=== PATIENT | female | born 1990 | race Caucasian/White ===

== ENCOUNTER 2017-05-06 07:12 | Inpatient (IN) | payer MEDICAID, OTHER ==
[2017-05-06] MEDS ORDERED: Sodium Chloride 0.9% 10 ML Syringe FLUSH PRN (07:27)
[2017-05-06] MEDS ORDERED: Ondansetron 4 MG/2 ML SDV IVPUSH PRN ×2 (07:27→14:08)
[2017-05-06] MEDS ORDERED: Nalbuphine 20 MG/1 ML Amp IVPUSH PRN (07:27)
[2017-05-06] MEDS ORDERED: Oxytocin/Lactated Ringers 10 UNIT/1,000 ML BAG IV SCH ×2 (07:30→08:00)
--- NOTE | 2017-05-06 07:33 | PCM.LDHP ---
L&D History of Present Illness - General Date of Service: 05/06/17 Admit Problem/Dx: Patient Status Order with Admit Dx/Problem 05/06/17 07:30 Patient Status [ADT] Routine Admission Diagnosis/Problem Admission Diagnosis/Problem Normal Source of Information: Patient History Limitations: Reports: No Limitations - History of Present Illness Introduction:: Patient is a 26 y/o at 39 1/7 wks who presents for elective IOL. Doing well today. No major concerns or complaints. Notes good FM. No contractions. 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 (Approximate): Musculoskeletal History: Reports: Back Pain, Chronic - Past Surgical History HEENT Surgical History: Reports: Tonsillectomy Musculoskeletal Surgical History: Reports: Other (See Below) (Wrist surgery) Social & Family History - Family History Oncologic: Reports: Skin - Tobacco Use Smoking Status *Q: Current Every Day Smoker Years of Tobacco use: 9 Packs/Tins Daily: 0.2 - Caffeine Use Caffeine Use: Reports: Soda - Recreational Drug Use Recreational Drug Use: No - Living Situation & Occupation Living situation: Reports: Occupation: Employed H&P Review of Systems - Review of Systems: Review Of Systems: See Below General: Reports: No Symptoms Pulmonary: Reports: No Symptoms Cardiovascular: Reports: No Symptoms Gastrointestinal: Reports: No Symptoms Genitourinary: Reports: No Symptoms Musculoskeletal: Reports: No Symptoms L&D Exam - Exam Exam: See Below - Vital Signs Weight: 91.036 kg - OB Specific Contraction Intensity: Irritability Movement: Active Heart Tones: Present Heart Tones per Min: 145 Heart Rate (FHR) Variability: Moderate (6-25 bmp) Presentation: Vertex - Cobos Score Cobos Score Cervix Position: Posterior Cobos Score Consistency: Soft Cobos Score Effacement: 31-50% Cobos Score Dilation: 1-2 cm Cobos Score Infant's Station: -3 Cobos Score Total: 4 - Exam General: Alert, Oriented, Cooperative Lungs: Clear to Auscultation, Normal Respiratory Effort Cardiovascular: Regular Rate, Regular Rhythm GI/Abdominal Exam: Soft, Non-Tender Genitourinary: Normal external exam Extremities: Normal Inspection Skin: Warm, Dry, Intact - Patient Data Result Diagrams: 05/06/17 07:50 - Problem List (1) 39 weeks gestation of SNOMED Code(s): 90784153 ICD Code: Z3A.39 - 39 WEEKS GESTATION OF Status: Acute Current Visit: Yes (2) GBS (group B Streptococcus carrier), +RV culture, currently SNOMED Code(s): 01277154 ICD Code: O99.820 - STREPTOCOCCUS B CARRIER STATE COMPLICATING Status: Acute Current Visit: Yes Problem List Initiated/Reviewed/Updated: Yes Orders Last 24hrs: Active Orders 24 hr Category Date Time Status Patient Status [ADT] Routine ADT 05/06/17 07:30 Active Communication Order [RC] ASDIRECTED Care 05/06/17 07:28 Active Communication Order [RC] ASDIRECTED Care 05/06/17 07:28 Active Communication Order [RC] ASDIRECTED Care 05/06/17 07:28 Active Heart Tones [RC] ASDIRECTED Care 05/06/17 07:30 Active Notify Provider [RC] ASDIRECTED Care 05/06/17 07:28 Active Notify Provider [RC] PFP Care 05/06/17 07:28 Active Notify Provider [RC] PRN Care 05/06/17 07:28 Active Peripheral IV Care [RC] . DIRECTED Care 05/06/17 07:30 Active Up ad Dasha [RC] ASDIRECTED Care 05/06/17 07:28 Active Vaginal Exam [RC] ASDIRECTED Care 05/06/17 07:28 Active Vital Signs [RC] ASDIRECTED Care 05/06/17 07:28 Active Vital Signs [RC] PER UNIT ROUTINE Care 05/06/17 07:28 Active Regular Diet [DIET] Diet 05/06/17 Breakfast Active Regular Diet [DIET] Diet 05/06/17 Breakfast Active CBC WITH AUTO DIFF [HEME] Routine Lab 05/06/17 07:27 Ordered TYPE AND SCREEN [BBK] Routine Lab 05/06/17 07:27 Ordered Ampicillin 1 gm Med 05/06/17 07:30 Ordered Sodium Chloride 0.9% [Normal Saline] 100 ml IV Q4H Ampicillin 2 gm Med 05/06/17 07:27 Ordered Sodium Chloride 0.9% [Normal Saline] 100 ml IV ONETIME Lactated Ringers [Ringers, Lactated] 1,000 ml Med 05/06/17 07:30 Ordered IV ASDIRECTED Nalbuphine [Nubain] Med 05/06/17 07:27 Ordered 10 mg IVPUSH Q2H PRN Ondansetron [Zofran] Med 05/06/17 07:27 Ordered 4 mg IVPUSH Q4H PRN Oxytocin/Lactated Ringers [Pitocin in LR 10 Units/1,000 Med 05/06/17 07:30 Ordered ML] 10 unit in 1,000 ml IV .CONTINUOUS Sodium Chloride 0.9% [Saline Flush] Med 05/06/17 07:27 Ordered 10 ml FLUSH ASDIRECTED PRN Electronic Heart Tones Ext w TOCO [WOMSER] Oth 05/06/17 07:28 Ordered Routine Electronic Heart Tones Internal [WOMSER] Per Unit Oth 05/06/17 07:28 Ordered Routine Peripheral IV Insertion Adult [OM.PC] Routine Oth 05/06/17 07:28 Ordered Resuscitation Status Routine Resus Stat 05/06/17 07:27 Ordered Medication Orders Ampicillin Sodium 2 gm/ Sodium (Chloride) 100 mls @ 200 mls/hr IV ONETIME ONE Stop: 05/06/17 07:56 Ampicillin Sodium 1 gm/ Sodium (Chloride) 100 mls @ 200 mls/hr IV Q4H CRUZITO Lactated Ringer's (Ringers, Lactated) 1,000 mls @ 40 mls/hr IV ASDIRECTED CRUZITO Oxytocin/Lactated Ringer's (Pitocin In Lr 10 Units/1,000 Ml) 10 unit in 1,000 mls @ 500 mls/hr IV .CONTINUOUS CRUZITO Nalbuphine HCl (Nubain) 10 mg IVPUSH Q2H PRN PRN Reason: Pain (moderate 4-6) Ondansetron HCl (Zofran) 4 mg IVPUSH Q4H PRN PRN Reason: Nausea/Vomiting Sodium Chloride (Saline Flush) 10 ml FLUSH ASDIRECTED PRN PRN Reason: Keep Vein Open Assessment/Plan Comment:: 26 y/o at 39 1/7 wks who presents for elective IOL * CBC and T&S * GBS positive, ampicillin to be started * Pain management per patient preference * Anticipate
[2017-05-06] MEDS ORDERED: Ampicillin 2 GM in Sodium Chloride 0.9% 100 ML IV ONE (08:00)
[2017-05-06] MEDS: Lactated Ringers 1,000 ML IV SCH ×2 (08:37→10:22)
[2017-05-06] MEDS: Ampicillin 1 GM in Sodium Chloride 0.9% 100 ML IV SCH (12:17)
--- NOTE | 2017-05-06 12:20 | PCM.PNLD ---
Labor Progress Note - VS & Meds Vital Signs: Last Vital Signs Temp 36.6 C 05/06/17 07:30 Pulse 89 05/06/17 07:30 Resp 18 05/06/17 07:30 BP 125/70 05/06/17 07:30 Pulse Ox 99 05/06/17 07:30 Active Medications: Current Medications Ampicillin Sodium 1 gm/ Sodium (Chloride) 100 mls @ 200 mls/hr IV Q4H CRUZITO Last Admin: 05/06/17 12:17 Dose: 200 mls/hr Lactated Ringer's (Ringers, Lactated) 1,000 mls @ 40 mls/hr IV ASDIRECTED CRUZITO Last Admin: 05/06/17 10:22 Dose: 40 mls/hr Oxytocin/Lactated Ringer's (Pitocin In Lr 10 Units/1,000 Ml) 10 unit in 1,000 mls @ 500 mls/hr IV .CONTINUOUS CRUZITO PRN Reason: Protocol Oxytocin/Lactated Ringer's (Pitocin In Lr 10 Units/1,000 Ml) 10 unit in 1,000 mls @ 12 mls/hr IV TITRATE CRUZITO; 2 MUNITS/MIN PRN Reason: Protocol Last Titration: 05/06/17 12:06 Dose: 12 munits/min, 72 mls/hr Nalbuphine HCl (Nubain) 10 mg IVPUSH Q2H PRN PRN Reason: Pain (moderate 4-6) Ondansetron HCl (Zofran) 4 mg IVPUSH Q4H PRN PRN Reason: Nausea/Vomiting Sodium Chloride (Saline Flush) 10 ml FLUSH ASDIRECTED PRN PRN Reason: Keep Vein Open Discontinued Medications Ampicillin Sodium 2 gm/ Sodium (Chloride) 100 mls @ 200 mls/hr IV ONETIME ONE Stop: 05/06/17 08:29 Last Admin: 05/06/17 08:37 Dose: 200 mls/hr - Uterine Contractions Uterine Monitoring Mode: External [place] Contraction Intensity: Mild to Moderate Uterine Resting Tone: Soft - Monitoring Monitor Mode: External Ultrasound Heart Rate (FHR) Baseline: 130 Heart Rate (FHR) Variability: Moderate (6-25 bmp) Accelerations: Present, 15x15 Decelerations: None Strip Review: Category I - Vaginal Exam Dilation (cm): 2 Effacement (Percent): 75 Station: -2 Cervical Position: Posterior - Labor Progress (Free Text) Labor Progress: Patient doing well. Pitocin at 12. Feeling some pressure. AROM performed with release of meconium stained fluid. Just receiving 2nd dose of antibiotics for GBS prophylaxis. Continue present management
[2017-05-06] MEDS ORDERED: FLU Vacc QS 2017-18 (6mos UP)/PF 60 MCG/0.5 ML Syringe IM ONE (14:00)
[2017-05-06] MEDS ORDERED: diphenhydrAMINE 50 MG/ML SDV IVPUSH PRN (14:08)
[2017-05-06] MEDS ORDERED: fentaNYL 100 MCG/2 ML SDV EPIDUR PRN (14:08)
[2017-05-06] MEDS ORDERED: ePHEDrine 50 MG/ML SDV IVPUSH PRN (14:08)
[2017-05-06] MEDS ORDERED: Bupivacaine/fentaNYL/NS 100 ML Bag EPIDUR SCH (14:15)
--- NOTE | 2017-05-06 14:23 | PCM.PREANE ---
Preanesthetic Assessment - Procedure Proposed Procedure: JAYSON - Anesthesia/Transfusion/Family Hx Anesthesia History: Prior Anesthesia Without Reaction Family History of Anesthesia Reaction: No Transfusion History: No Prior Transfusion(s) - Review of Systems General: No Symptoms Pulmonary: No Symptoms Cardiovascular: No Symptoms Gastrointestinal: No Symptoms Neurological: No Symptoms Other: Reports: None - Physical Assessment NPO Status Date: 05/06/17 NPO Status Time: 10:00 Pulse: 89 O2 Sat by Pulse Oximetry: 99 Respiratory Rate: 18 Blood Pressure: 125/70 Vital Signs: Last Vital Signs Temp 36.6 C 05/06/17 07:30 Pulse 89 05/06/17 07:30 Resp 18 05/06/17 07:30 BP 125/70 05/06/17 07:30 Pulse Ox 99 05/06/17 07:30 Height: 1.57 m Weight: 93.848 kg ASA Class: 2 Mental Status: Alert & Oriented x3 Dentition: Reports: Normal Dentition Thyro-Mental Finger Breadths: 3 Mouth Opening Finger Breadths: 3 ROM/Head Extension: Full Lungs: Clear to Auscultation, Normal Respiratory Effort Cardiovascular: Regular Rate, Regular Rhythm - Lab Values: Laboratory Last Values WBC 12.49 K/mm3 (3.98-10.04) H 05/06/17 07:50 RBC 3.77 M/mm3 (3.98-5.22) L 05/06/17 07:50 Hgb 12.3 gm/L (11.2-15.7) 05/06/17 07:50 Hct 36.2 % (34.1-44.9) 05/06/17 07:50 MCV 96.0 fl (79.4-94.8) H 05/06/17 07:50 MCH 32.6 pg (25.6-32.2) H 05/06/17 07:50 MCHC 34.0 g/dl (32.2-35.5) 05/06/17 07:50 RDW Std Deviation 45.4 fL (36.4-46.3) 05/06/17 07:50 Plt Count 167 K/mm3 (182-369) L 05/06/17 07:50 MPV 11.4 fl (9.4-12.3) 05/06/17 07:50 Neut % (Auto) 73.2 % (34.0-71.1) H 05/06/17 07:50 Lymph % (Auto) 19.9 % (19.3-51.7) 05/06/17 07:50 [place] % (Auto) 5.8 % (4.7-12.5) 05/06/17 07:50 Eos % (Auto) 0.3 (0.7-5.8) L 05/06/17 07:50 Baso % (Auto) 0.2 % (0.1-1.2) 05/06/17 07:50 Neut # (Auto) 9.14 K/mm3 (1.56-6.13) H 05/06/17 07:50 Lymph # (Auto) 2.49 K/mm3 (1.18-3.74) 05/06/17 07:50 [place] # (Auto) 0.73 K/mm3 (0.24-0.36) H 05/06/17 07:50 Eos # (Auto) 0.04 K/mm3 (0.04-0.36) 05/06/17 07:50 Baso # (Auto) 0.02 K/mm3 (0.01-0.08) 05/06/17 07:50 MRSA (PCR) Negative 05/06/17 09:29 Blood Type A POSITIVE 05/06/17 07:50 Gel Antibody Screen Negative 05/06/17 07:50 - Allergies Allergies/Adverse Reactions: Allergies Allergy/AdvReac Type Severity Reaction Status Date / Time aripiprazole [From Abilify] Allergy Swollen Verified 03/14/17 16:41 Tongue - Blood Blood Available: No Product(s) Available: None - Acknowledgements Anesthesia Type Planned: Epidural Pt an Appropriate Candidate for the Planned Anesthesia: Yes Alternatives and Risks of Anesthesia Discussed w Pt/Guardian: Yes Pt/Guardian Understands and Agrees with Anesthesia Plan: Yes PreAnesthesia Questionnaire Genitourinary History: Reports: Other (See Below) Other Genitourinary History: Patient states she has a history of being unable to empty her bladder, she's had UTI's in the past Musculoskeletal History: Reports: Back Pain, Chronic Other Musculoskeletal History: BACK PAIN SINCE DELIVERY OF HER CHILD 2 YEARS AGO - Infectious Disease History Infectious Disease History: Reports: MRSA, Other (See Below) Other Infectious Disease History: 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 Unknown if she has been cleared. Rapid swab taken and sent to lab for testing. - Past Surgical History HEENT Surgical History: Reports: Tonsillectomy - SUBSTANCE USE Smoking Status *Q: Current Every Day Smoker (0.25ppd for 10yeasr) Tobacco Use Within Last Twelve Months: Cigarettes Recreational Drug Use History: No - HOME MEDS Home Medications: Home Meds PNV95/Ferrous Fumarate/FA [ Vitamins Tablet] 1 tab PO DAILY 05/06/17 [ History] - CURRENT (IN HOUSE) MEDS Current Meds: Current Medications Ampicillin Sodium 1 gm/ Sodium (Chloride) 100 mls @ 200 mls/hr IV Q4H CRUZITO Last Admin: 05/06/17 12:17 Dose: 200 mls/hr Lactated Ringer's (Ringers, Lactated) 1,000 mls @ 40 mls/hr IV ASDIRECTED CRUZITO Last Admin: 05/06/17 10:22 Dose: 40 mls/hr Oxytocin/Lactated Ringer's (Pitocin In Lr 10 Units/1,000 Ml) 10 unit in 1,000 mls @ 500 mls/hr IV .CONTINUOUS CRUZITO PRN Reason: Protocol Oxytocin/Lactated Ringer's (Pitocin In Lr 10 Units/1,000 Ml) 10 unit in 1,000 mls @ 12 mls/hr IV TITRATE CRUZITO; 2 MUNITS/MIN PRN Reason: Protocol Last Titration: 05/06/17 13:49 Dose: 6 munits/min, 36 mls/hr Nalbuphine HCl (Nubain) 10 mg IVPUSH Q2H PRN PRN Reason: Pain (moderate 4-6) Ondansetron HCl (Zofran) 4 mg IVPUSH Q4H PRN PRN Reason: Nausea/Vomiting Sodium Chloride (Saline Flush) 10 ml FLUSH ASDIRECTED PRN PRN Reason: Keep Vein Open Discontinued Medications Ampicillin Sodium 2 gm/ Sodium (Chloride) 100 mls @ 200 mls/hr IV ONETIME ONE Stop: 05/06/17 08:29 Last Admin: 05/06/17 08:37 Dose: 200 mls/hr
[2017-05-06] MEDS ORDERED: Witch Hazel Medicated Pads 100/Jar TOP PRN (18:17)
[2017-05-06] MEDS ORDERED: Lanolin 100% Cream 7 GM Tube TOP PRN (18:17)
[2017-05-06] MEDS ORDERED: Benzocaine/Menthol 20%-0.5% Spray 56 GM Canister TOP PRN (18:17)
[2017-05-06] MEDS ORDERED: Acetaminophen 325 MG Tab PO PRN (18:17)
[2017-05-06] MEDS: Ibuprofen 600 MG Tab PO PRN (20:03)
--- NOTE | 2017-05-06 20:03 | PCM.DEL ---
L & D Note - General Info Date of Service: 05/06/17 - Delivery Note Labor: Induced by ARM, Induced by Oxytocin Delivery Outcome: Livebirth Infant Delivery Method: Spontaneous Vaginal Delivery-Single Infant Delivery Mode: Spontaneous Presentation: Compound Nuchal Cord: Present (tight and not able to be reduced ) Anesthesia Type: Epidural Amniotic Fluid Description: Meconium Stained Episiotomy Type: None Laceration: None Placenta: Intact, Spontaneous Cord: 3 Vessels Estimated Blood Loss: 200 Resuscitation Needed: Yes : Bulb Syringe, Stimulated, Warmed, [place] Used, Warmer Used Score 1 min: 9 Score 5 min: 9 Delivery Comments (Free Text/Narrative):: Patient found to be complete and began pushing. With maternal pushing effort head delivered from an JEANNIE presentation. Tight nuchal cord present which could not be reduced. With downward traction shoulders and body delivered. True knot noted in cord. Cord clamped and cut and baby handed to awaiting financial cost analyst. Cord blood collected. Placenta allowed time to separate and spontaneously expelled. Inspection of the perineum showed no lacerations - Patient Data Vitals - Most Recent: Last Vital Signs Temp 36.6 C 05/06/17 07:30 Pulse 89 05/06/17 14:22 Resp 18 05/06/17 14:22 BP 125/70 05/06/17 14:22 Pulse Ox 99 05/06/17 14:22 Weight - Most Recent: 91.036 kg I&O - Last 24 Hours: Intake & Output 05/06/17 05/06/17 05/06/17 06:59 14:59 22:59 Intake Total 3440 Balance 3440 Lab Results Last 24 Hours: Laboratory Results - last 24 hr 05/06/17 05/06/17 05/06/17 Range/Units 07:50 07:50 09:29 WBC 12.49 H (3.98-10.04) K/mm3 RBC 3.77 L (3.98-5.22) M/mm3 Hgb 12.3 (11.2-15.7) gm/L Hct 36.2 (34.1-44.9) % MCV 96.0 H (79.4-94.8) fl MCH 32.6 H (25.6-32.2) pg MCHC 34.0 (32.2-35.5) g/dl RDW Std Deviation 45.4 (36.4-46.3) fL Plt Count 167 L (182-369) K/mm3 MPV 11.4 (9.4-12.3) fl Neut % (Auto) 73.2 H (34.0-71.1) % Lymph % (Auto) 19.9 (19.3-51.7) % [place] % (Auto) 5.8 (4.7-12.5) % Eos % (Auto) 0.3 L (0.7-5.8) Baso % (Auto) 0.2 (0.1-1.2) % Neut # (Auto) 9.14 H (1.56-6.13) K/mm3 Lymph # (Auto) 2.49 (1.18-3.74) K/mm3 [place] # (Auto) 0.73 H (0.24-0.36) K/mm3 Eos # (Auto) 0.04 (0.04-0.36) K/mm3 Baso # (Auto) 0.02 (0.01-0.08) K/mm3 MRSA (PCR) Negative Blood Type A POSITIVE Gel Antibody Screen Negative Med Orders - Current: Current Medications Acetaminophen (Tylenol) 650 mg PO Q4H PRN PRN Reason: mild pain or fever Benzocaine/Menthol (Dermoplast Pain Relief [place]) 0 gm TOP ASDIRECTED PRN PRN Reason: Perineal Comfort Measure Emollient Ointment (Lansinoh Hpa) 0 gm TOP ASDIRECTED PRN PRN Reason: Sore Nipples Ibuprofen (Motrin) 600 mg PO Q6H PRN PRN Reason: Mild pain or fever Witch Donna (Tucks) 1 pad TOP ASDIRECTED PRN PRN Reason: Hemorrhoid pain Discontinued Medications Diphenhydramine HCl (Benadryl) 25 mg IVPUSH Q6H PRN PRN Reason: Pruritis Ephedrine Sulfate (Ephedrine Sulfate) 5 mg IVPUSH ASDIRECTED PRN PRN Reason: Hypotension Fentanyl (Sublimaze) 100 mcg EPIDUR Q3H PRN PRN Reason: Pain Last Admin: 05/06/17 14:35 Dose: 100 mcg Fentanyl/Bupivacaine HCl (Fentanyl/Bupivacaine/Ns 2 Mcg-0.125% 100 Ml) 100 ml EPIDUR ASDIRECTED CRUZITO Last Admin: 05/06/17 14:36 Dose: 100 ml Ampicillin Sodium 2 gm/ Sodium (Chloride) 100 mls @ 200 mls/hr IV ONETIME ONE Stop: 05/06/17 08:29 Last Admin: 05/06/17 08:37 Dose: 200 mls/hr Ampicillin Sodium 1 gm/ Sodium (Chloride) 100 mls @ 200 mls/hr IV Q4H [facility] Last Admin: 05/06/17 12:17 Dose: 200 mls/hr Lactated Ringer's (Ringers, Lactated) 1,000 mls @ 40 mls/hr IV ASDIRECTED CRUZITO Last Admin: 05/06/17 10:22 Dose: 40 mls/hr Oxytocin/Lactated Ringer's (Pitocin In Lr 10 Units/1,000 Ml) 10 unit in 1,000 mls @ 500 mls/hr IV .CONTINUOUS CRUZITO PRN Reason: Protocol Oxytocin/Lactated Ringer's (Pitocin In Lr 10 Units/1,000 Ml) 10 unit in 1,000 mls @ 12 mls/hr IV TITRATE CRUZITO; 2 MUNITS/MIN PRN Reason: Protocol Last Titration: 05/06/17 13:49 Dose: 6 munits/min, 36 mls/hr Influenza Virus Vaccine (Pharmacy To Dose - Influenza Vaccine) 1 each IM ONETIME ONE Stop: 05/06/17 09:59 Influenza Virus Vaccine (Flulaval Quad [id number]) 60 mcg IM .ONCE ONE Stop: 05/06/17 14:01 Nalbuphine HCl (Nubain) 10 mg IVPUSH Q2H PRN PRN Reason: Pain (moderate 4-6) Ondansetron HCl (Zofran) 4 mg IVPUSH Q4H PRN PRN Reason: Nausea/Vomiting Ondansetron HCl (Zofran) 4 mg IVPUSH ONETIME PRN PRN Reason: Nausea/Vomiting Sodium Chloride (Saline Flush) 10 ml FLUSH ASDIRECTED PRN PRN Reason: Keep Vein Open - Problem List & Annotations (1) 39 weeks gestation of SNOMED Code(s): 25997256 Code(s): Z3A.39 - 39 WEEKS GESTATION OF Status: Acute Current Visit: Yes (2) GBS (group B Streptococcus carrier), +RV culture, currently SNOMED Code(s): 28984025 Code(s): O99.820 - STREPTOCOCCUS B CARRIER STATE COMPLICATING Status: Acute Current Visit: Yes (3) True knot of umbilical cord, delivered SNOMED Code(s): 52731855 Code(s): O69.2XX0 - LABOR AND DEL COMP BY OTH CORD ENTANGLE, W COMPRSN, UNSP Status: Acute Current Visit: Yes (4) Vaginal delivery SNOMED Code(s): 264084537 Code(s): O80 - ENCOUNTER FOR FULL-TERM UNCOMPLICATED DELIVERY Status: Acute Current Visit: Yes - Problem List Review Problem List Initiated/Reviewed/Updated: Yes - My Orders Last 24 Hours: My Active Orders 05/06/17 07:27 Resuscitation Status Routine 05/06/17 18:17 Activity as Tolerated [RC] PER UNIT ROUTINE Vital Signs [RC] 04,12,20 Acetaminophen [Tylenol] 650 mg PO Q4H PRN Benzocaine/Menthol [Dermoplast Pain Relief [place]] See Dose Instructions TOP ASDIRECTED PRN Ibuprofen [Motrin] 600 mg PO Q6H PRN Lanolin [Lansinoh HPA] See Dose Instructions TOP ASDIRECTED PRN Witch Donna [Tucks] 1 pad TOP ASDIRECTED PRN Assess Lochia [WOMSER] Per Unit Routine Assess Uterine Involution [WOMSER] Per Unit Routine Breast Pump [WOMSER] Per Unit Routine Ice Therapy [OM.PC] Per Unit Routine Perineal Care [OM.PC] Per Unit Routine Peripheral IV Discontinue [OM.PC] Routine Sitz Bath [OM.PC] Per Unit Routine 05/06/17 18:30 Heat Therapy [OM.PC] PRN 05/06/17 Dinner Regular Diet [DIET] 05/07/17 18:30 Heat Therapy [OM.PC] PRN - Assessment Assessment:: 26 y/o G3 now P3003 PPD#0 from at 39 1/7 wks - Plan Plan:: * Routine cares * Encourage breast feeding * Discharge home in 1-2 days
[2017-05-06] MEDS ORDERED: Acetaminophen/Codeine 300-30 MG Tab PO ONE (21:45)
[2017-05-06] MEDS ORDERED: Bupivacaine 0.25% 10 ML SDV ONE (22:22)
[2017-05-07] MEDS: Ampicillin 1 GM in Sodium Chloride 0.9% 100 ML IV SCH (02:18)
[2017-05-07] MEDS: Ibuprofen 600 MG Tab PO PRN (03:36)
--- NOTE | 2017-05-07 06:56 | PCM.PNPP ---
- General Info Date of Service: 05/07/17 Functional Status: Reports: Pain Controlled, Tolerating Diet, Ambulating, Urinating - Review of Systems General: Reports: No Symptoms Pulmonary: Reports: No Symptoms Cardiovascular: Reports: No Symptoms Gastrointestinal: Reports: No Symptoms Genitourinary: Reports: No Symptoms Musculoskeletal: Reports: Back Pain (Some, mild overall) - Patient Data Vital Signs - Most Recent: Last Vital Signs Temp 36.7 C 05/07/17 01:38 Pulse 64 05/07/17 01:38 Resp 16 05/07/17 01:38 BP 120/67 05/07/17 01:38 Pulse Ox 99 05/07/17 01:38 Weight - Most Recent: 91.036 kg I&O - Last 24 Hours: Intake & Output 05/06/17 05/06/17 05/07/17 14:59 22:59 06:59 Intake Total 3440 Balance 3440 Lab Results - Last 24 Hours: Laboratory Results - last 24 hr 05/06/17 05/06/17 05/06/17 Range/Units 07:50 07:50 09:29 WBC 12.49 H (3.98-10.04) K/mm3 RBC 3.77 L (3.98-5.22) M/mm3 Hgb 12.3 (11.2-15.7) gm/L Hct 36.2 (34.1-44.9) % MCV 96.0 H (79.4-94.8) fl MCH 32.6 H (25.6-32.2) pg MCHC 34.0 (32.2-35.5) g/dl RDW Std Deviation 45.4 (36.4-46.3) fL Plt Count 167 L (182-369) K/mm3 MPV 11.4 (9.4-12.3) fl Neut % (Auto) 73.2 H (34.0-71.1) % Lymph % (Auto) 19.9 (19.3-51.7) % [place] % (Auto) 5.8 (4.7-12.5) % Eos % (Auto) 0.3 L (0.7-5.8) Baso % (Auto) 0.2 (0.1-1.2) % Neut # (Auto) 9.14 H (1.56-6.13) K/mm3 Lymph # (Auto) 2.49 (1.18-3.74) K/mm3 [place] # (Auto) 0.73 H (0.24-0.36) K/mm3 Eos # (Auto) 0.04 (0.04-0.36) K/mm3 Baso # (Auto) 0.02 (0.01-0.08) K/mm3 MRSA (PCR) Negative Blood Type A POSITIVE Gel Antibody Screen Negative Med Orders - Current: Current Medications Acetaminophen (Tylenol) 650 mg PO Q4H PRN PRN Reason: mild pain or fever Benzocaine/Menthol (Dermoplast Pain Relief [place]) 0 gm TOP ASDIRECTED PRN PRN Reason: Perineal Comfort Measure Last Admin: 05/06/17 20:02 Dose: 1 spray Emollient Ointment (Lansinoh Hpa) 0 gm TOP ASDIRECTED PRN PRN Reason: Sore Nipples Ibuprofen (Motrin) 600 mg PO Q6H PRN PRN Reason: Mild pain or fever Last Admin: 05/07/17 03:36 Dose: 600 mg Witch Donna (Tucks) 1 pad TOP ASDIRECTED PRN PRN Reason: Hemorrhoid pain Last Admin: 05/06/17 20:02 Dose: 1 pad Discontinued Medications Acetaminophen/Codeine Phosphate (Tylenol With Codeine No.3 300mg/30mg) 2 tab PO ONETIME ONE Stop: 05/06/17 21:46 Last Admin: 05/06/17 21:52 Dose: 2 tab Diphenhydramine HCl (Benadryl) 25 mg IVPUSH Q6H PRN PRN Reason: Pruritis Ephedrine Sulfate (Ephedrine Sulfate) 5 mg IVPUSH ASDIRECTED PRN PRN Reason: Hypotension Fentanyl (Sublimaze) 100 mcg EPIDUR Q3H PRN PRN Reason: Pain Last Admin: 05/06/17 14:35 Dose: 100 mcg Fentanyl/Bupivacaine HCl (Fentanyl/Bupivacaine/Ns 2 Mcg-0.125% 100 Ml) 100 ml EPIDUR ASDIRECTED [facility] Last Admin: 05/06/17 14:36 Dose: 100 ml Ampicillin Sodium 2 gm/ Sodium (Chloride) 100 mls @ 200 mls/hr IV ONETIME ONE Stop: 05/06/17 08:29 Last Admin: 05/06/17 08:37 Dose: 200 mls/hr Ampicillin Sodium 1 gm/ Sodium (Chloride) 100 mls @ 200 mls/hr IV Q4H [facility] Last Admin: 05/07/17 02:18 Dose: Not Given Lactated Ringer's (Ringers, Lactated) 1,000 mls @ 40 mls/hr IV ASDIRECTED [facility] Last Admin: 05/06/17 10:22 Dose: 40 mls/hr Oxytocin/Lactated Ringer's (Pitocin In Lr 10 Units/1,000 Ml) 10 unit in 1,000 mls @ 500 mls/hr IV .CONTINUOUS CRUZITO PRN Reason: Protocol Oxytocin/Lactated Ringer's (Pitocin In Lr 10 Units/1,000 Ml) 10 unit in 1,000 mls @ 12 mls/hr IV TITRATE CRUZITO; 2 MUNITS/MIN PRN Reason: Protocol Last Titration: 05/06/17 13:49 Dose: 6 munits/min, 36 mls/hr Influenza Virus Vaccine (Pharmacy To Dose - Influenza Vaccine) 1 each IM ONETIME ONE Stop: 05/06/17 09:59 Influenza Virus Vaccine (Flulaval Quad [id number]) 60 mcg IM .ONCE ONE Stop: 05/06/17 14:01 Nalbuphine HCl (Nubain) 10 mg IVPUSH Q2H PRN PRN Reason: Pain (moderate 4-6) Ondansetron HCl (Zofran) 4 mg IVPUSH Q4H PRN PRN Reason: Nausea/Vomiting Ondansetron HCl (Zofran) 4 mg IVPUSH ONETIME PRN PRN Reason: Nausea/Vomiting Sodium Chloride (Saline Flush) 10 ml FLUSH ASDIRECTED PRN PRN Reason: Keep Vein Open - Infant Interaction Infant Disposition, : in Room with Family Interaction: Holding Feeding: Bottle Fed , Breastfed Infant; Nursed Well Support Person: Significant Other, Friend, Other (see below) - Recovery Exam Fundal Tone: Firm Fundal Level: 1 Fingerbreadths Below Umbilicus Fundal Placement: Midline Lochia Amount: Moderate Lochia Color: Rubra/Red Perineum Description: Intact, Minimal Bruising/Swelling Episiotomy/Laceration: None Bladder Status: Voiding Urinary Elimination: Voided - Exam General: Alert, Oriented, Cooperative GI/Abdominal Exam: Soft, Non-Tender Extremities: Normal Inspection Skin: Warm, Dry, Intact - Problem List & Annotations (1) 39 weeks gestation of SNOMED Code(s): 38076475 Code(s): Z3A.39 - 39 WEEKS GESTATION OF Status: Acute Current Visit: Yes (2) GBS (group B Streptococcus carrier), +RV culture, currently SNOMED Code(s): 74143382 Code(s): O99.820 - STREPTOCOCCUS B CARRIER STATE COMPLICATING Status: Acute Current Visit: Yes (3) True knot of umbilical cord, delivered SNOMED Code(s): 87241920 Code(s): O69.2XX0 - LABOR AND DEL COMP BY OTH CORD ENTANGLE, W COMPRSN, UNSP Status: Acute Current Visit: Yes (4) Vaginal delivery SNOMED Code(s): 615229255 Code(s): O80 - ENCOUNTER FOR FULL-TERM UNCOMPLICATED DELIVERY Status: Acute Current Visit: Yes - Problem List Review Problem List Initiated/Reviewed/Updated: Yes - My Orders Last 24 Hours: My Active Orders 05/06/17 07:27 Resuscitation Status Routine 05/06/17 18:17 Activity as Tolerated [RC] PER UNIT ROUTINE Vital Signs [RC] 04,12,20 Acetaminophen [Tylenol] 650 mg PO Q4H PRN Benzocaine/Menthol [Dermoplast Pain Relief [place]] See Dose Instructions TOP ASDIRECTED PRN Ibuprofen [Motrin] 600 mg PO Q6H PRN Lanolin [Lansinoh HPA] See Dose Instructions TOP ASDIRECTED PRN Witch Donna [Tucks] 1 pad TOP ASDIRECTED PRN Assess Lochia [WOMSER] Per Unit Routine Assess Uterine Involution [WOMSER] Per Unit Routine Breast Pump [WOMSER] Per Unit Routine Ice Therapy [OM.PC] Per Unit Routine Perineal Care [OM.PC] Per Unit Routine Peripheral IV Discontinue [OM.PC] Routine Sitz Bath [OM.PC] Per Unit Routine 05/06/17 18:30 Heat Therapy [OM.PC] PRN 05/06/17 Dinner Regular Diet [DIET] 05/07/17 18:30 Heat Therapy [OM.PC] PRN - Assessment Assessment:: 26 y/o G3 now P3003 PPD#1 from at 39 1/7 wks - Plan Plan:: * Routine cares * Encourage breast feeding * Discharge home today
--- NOTE | 2017-05-07 06:58 | PCM.DCSUM1 ---
Discharge Summary - Discharge Data Discharge Date: 05/07/17 Discharge Disposition: Home, Self-Care 01 Condition: Good - Discharge Diagnosis/Problem(s) (1) 39 weeks gestation of SNOMED Code(s): 80381336 ICD Code: Z3A.39 - 39 WEEKS GESTATION OF Status: Acute Current Visit: Yes (2) GBS (group B Streptococcus carrier), +RV culture, currently SNOMED Code(s): 88758334 ICD Code: O99.820 - STREPTOCOCCUS B CARRIER STATE COMPLICATING Status: Acute Current Visit: Yes (3) True knot of umbilical cord, delivered SNOMED Code(s): 03971179 ICD Code: O69.2XX0 - LABOR AND DEL COMP BY OTH CORD ENTANGLE, W COMPRSN, UNSP Status: Acute Current Visit: Yes (4) Vaginal delivery SNOMED Code(s): 538980727 ICD Code: O80 - ENCOUNTER FOR FULL-TERM UNCOMPLICATED DELIVERY Status: Acute Current Visit: Yes - Patient Summary/Data Complications: None Consults: None Recommended Follow-up Testing/Procedures: Follow up in 5-6 weeks for check Hospital Course: 26 y/o at 39 1/7 wks who presented for planned IOL. This was done with pitocin and AROM when able. She progressed well to complete dilation and underwent an uncomplicated . See delivery note. she did well and was discharged home on PPD#1. - Patient Instructions Diet: Regular Diet as Tolerated Activity: As Tolerated Activity, Other: Pelvic Rest for 6 weeks Driving: May Drive Today Showering/Bathing: May Shower Showering/Bathing, Other: May Bathe Notify Provider of: Fever, Increased Pain, Swelling and Redness, Drainage, Nausea and/or Vomiting - Discharge Plan Home Medications: Home Meds PNV95/Ferrous Fumarate/FA [ Vitamins Tablet] 1 tab PO DAILY 05/06/17 [ History] Ibuprofen [IJD: Ibuprofen] 600 mg PO Q6H PRN tablet 05/07/17 [Rx] Patient Handouts: Vaginal Delivery, Care After, Challenges and Solutions Referrals: Ashanti Macario MD [Physician] - (5-6 weeks for check ) - Discharge Summary/Plan Comment DC Time >30 min.: No - Patient Data Vitals - Most Recent: Last Vital Signs Temp 36.7 C 05/07/17 01:38 Pulse 64 05/07/17 01:38 Resp 16 05/07/17 01:38 BP 120/67 05/07/17 01:38 Pulse Ox 99 05/07/17 01:38 Weight - Most Recent: 91.036 kg I&O - Last 24 hours: Intake & Output 05/06/17 05/06/17 05/07/17 14:59 22:59 06:59 Intake Total 3440 Balance 3440 Lab Results - Last 24 hrs: Laboratory Results - last 24 hr 05/06/17 05/06/17 05/06/17 Range/Units 07:50 07:50 09:29 WBC 12.49 H (3.98-10.04) K/mm3 RBC 3.77 L (3.98-5.22) M/mm3 Hgb 12.3 (11.2-15.7) gm/L Hct 36.2 (34.1-44.9) % MCV 96.0 H (79.4-94.8) fl MCH 32.6 H (25.6-32.2) pg MCHC 34.0 (32.2-35.5) g/dl RDW Std Deviation 45.4 (36.4-46.3) fL Plt Count 167 L (182-369) K/mm3 MPV 11.4 (9.4-12.3) fl Neut % (Auto) 73.2 H (34.0-71.1) % Lymph % (Auto) 19.9 (19.3-51.7) % [place] % (Auto) 5.8 (4.7-12.5) % Eos % (Auto) 0.3 L (0.7-5.8) Baso % (Auto) 0.2 (0.1-1.2) % Neut # (Auto) 9.14 H (1.56-6.13) K/mm3 Lymph # (Auto) 2.49 (1.18-3.74) K/mm3 [place] # (Auto) 0.73 H (0.24-0.36) K/mm3 Eos # (Auto) 0.04 (0.04-0.36) K/mm3 Baso # (Auto) 0.02 (0.01-0.08) K/mm3 MRSA (PCR) Negative Blood Type A POSITIVE Gel Antibody Screen Negative Med Orders - Current: Current Medications Acetaminophen (Tylenol) 650 mg PO Q4H PRN PRN Reason: mild pain or fever Benzocaine/Menthol (Dermoplast Pain Relief [place]) 0 gm TOP ASDIRECTED PRN PRN Reason: Perineal Comfort Measure Last Admin: 05/06/17 20:02 Dose: 1 spray Emollient Ointment (Lansinoh Hpa) 0 gm TOP ASDIRECTED PRN PRN Reason: Sore Nipples Ibuprofen (Motrin) 600 mg PO Q6H PRN PRN Reason: Mild pain or fever Last Admin: 05/07/17 03:36 Dose: 600 mg Witch Donna (Tucks) 1 pad TOP ASDIRECTED PRN PRN Reason: Hemorrhoid pain Last Admin: 05/06/17 20:02 Dose: 1 pad Discontinued Medications Acetaminophen/Codeine Phosphate (Tylenol With Codeine No.3 300mg/30mg) 2 tab PO ONETIME ONE Stop: 05/06/17 21:46 Last Admin: 05/06/17 21:52 Dose: 2 tab Diphenhydramine HCl (Benadryl) 25 mg IVPUSH Q6H PRN PRN Reason: Pruritis Ephedrine Sulfate (Ephedrine Sulfate) 5 mg IVPUSH ASDIRECTED PRN PRN Reason: Hypotension Fentanyl (Sublimaze) 100 mcg EPIDUR Q3H PRN PRN Reason: Pain Last Admin: 05/06/17 14:35 Dose: 100 mcg Fentanyl/Bupivacaine HCl (Fentanyl/Bupivacaine/Ns 2 Mcg-0.125% 100 Ml) 100 ml EPIDUR ASDIRECTED [facility] Last Admin: 05/06/17 14:36 Dose: 100 ml Ampicillin Sodium 2 gm/ Sodium (Chloride) 100 mls @ 200 mls/hr IV ONETIME ONE Stop: 05/06/17 08:29 Last Admin: 05/06/17 08:37 Dose: 200 mls/hr Ampicillin Sodium 1 gm/ Sodium (Chloride) 100 mls @ 200 mls/hr IV Q4H [facility] Last Admin: 05/07/17 02:18 Dose: Not Given Lactated Ringer's (Ringers, Lactated) 1,000 mls @ 40 mls/hr IV ASDIRECTED [facility] Last Admin: 05/06/17 10:22 Dose: 40 mls/hr Oxytocin/Lactated Ringer's (Pitocin In Lr 10 Units/1,000 Ml) 10 unit in 1,000 mls @ 500 mls/hr IV .CONTINUOUS CRUZITO PRN Reason: Protocol Oxytocin/Lactated Ringer's (Pitocin In Lr 10 Units/1,000 Ml) 10 unit in 1,000 mls @ 12 mls/hr IV TITRATE CRUZITO; 2 MUNITS/MIN PRN Reason: Protocol Last Titration: 05/06/17 13:49 Dose: 6 munits/min, 36 mls/hr Influenza Virus Vaccine (Pharmacy To Dose - Influenza Vaccine) 1 each IM ONETIME ONE Stop: 05/06/17 09:59 Influenza Virus Vaccine (Flulaval Quad [id number]) 60 mcg IM .ONCE ONE Stop: 05/06/17 14:01 Nalbuphine HCl (Nubain) 10 mg IVPUSH Q2H PRN PRN Reason: Pain (moderate 4-6) Ondansetron HCl (Zofran) 4 mg IVPUSH Q4H PRN PRN Reason: Nausea/Vomiting Ondansetron HCl (Zofran) 4 mg IVPUSH ONETIME PRN PRN Reason: Nausea/Vomiting Sodium Chloride (Saline Flush) 10 ml FLUSH ASDIRECTED PRN PRN Reason: Keep Vein Open *Q Meaningful Use (DIS) - VTE *Q VTE Criteria *Q: - Stroke *Q Stroke Criteria *Q: - AMI *Q AMI Criteria *Q:
--- NOTE | 2017-05-07 08:11 | PCM48HPAN ---
Post Anesthesia Note - EVALUATION WITHIN 48HRS OF ANESTHETIC Vital Signs in Normal Range: Yes Patient Participated in Evaluation: Yes Respiratory Function Stable: Yes Airway Patent: Yes Cardiovascular Function Stable: Yes Hydration Status Stable: Yes Pain Control Satisfactory: Yes Nausea and Vomiting Control Satisfactory: Yes Mental Status Recovered: Yes - COMMENTS/OBSERVATIONS Free Text/Narrative:: Juani is up and walking this morning. No further questions at this time. Denies : headache, backpain, and/or numbness and tingling in her legs. No apparent complications noted at this time.
[2017-05-07 13:12] VITALS: BP 114/59
[2017-05-07] MEDS ORDERED: Pneumococcal Polyvalent-23 Vaccine 0.5 ML SDV IM ONE (13:23)
== END 2017-05-07 18:20 | disposition home or self-care (01) | DRG 775 ==
LOC: JD.OB 07:12 → OBSVTOIN 16:11 → JD.OB 16:11
PROVIDERS: ADMIT Obstetrics & Gynecology; ATTEND Obstetrics & Gynecology
PROC: 10E0XZZ Delivery of Products of Conception, External Approach (ICD-10-PCS; principal; 2017-05-06)
PROC: 3E033VJ Introduction of Other Hormone into Peripheral Vein, Percutaneous Approach (ICD-10-PCS; 2017-05-06)
PROC: 10907ZC Drainage of Amniotic Fluid, Therapeutic from Products of Conception, Via Natural or Artificial Opening (ICD-10-PCS; 2017-05-06)
PROC: 00HU33Z Insertion of Infusion Device into Spinal Canal, Percutaneous Approach (ICD-10-PCS; 2017-05-06)
PROC: 3E0R3BZ Introduction of Anesthetic Agent into Spinal Canal, Percutaneous Approach (ICD-10-PCS; 2017-05-06)
PROC: 3E0234Z Introduction of Serum, Toxoid and Vaccine into Muscle, Percutaneous Approach (ICD-10-PCS; 2017-05-07)
DX: O99.334 Smoking (tobacco) complicating childbirth (principal); O99.824 Streptococcus B carrier state complicating childbirth; O77.0 Labor and delivery complicated by meconium in amniotic fluid; O69.2XX0 Labor and delivery complicated by other cord entanglement, with compression, not applicable or unspecified; Z3A.39 39 weeks gestation of pregnancy; Z37.0 Single live birth; Z88.8 Allergy status to other drugs, medicaments and biological substances; Z23 Encounter for immunization
CPT/HCPCS: 01967; 36415; 51702; 59409; 85025; 86850; 86900; 86901; 87641; 90686; 90732; A9270-GY; G0008; G0009; J0290; J2590; J3010; J7030; J7120

== ENCOUNTER 2017-09-08 11:59 | Emergency (ER) | payer MEDICAID ==
[2017-09-08 12:05] VITALS: BP 117/74
--- NOTE | 2017-09-08 12:58 | EDM.PDOC ---
ED HPI GENERAL MEDICAL PROBLEM - General Chief Complaint: Back Pain or Injury Stated Complaint: BACK PAIN Time Seen by Provider: 09/08/17 12:07 Source of Information: Reports: Patient History Limitations: Reports: No Limitations - History of Present Illness INITIAL COMMENTS - FREE TEXT/NARRATIVE: The patient presents with left lower back pain. This started last night. She had a coughing fit and she developed severe pain in the left lower back. She has no numbness or weakness. She has no bowel or bladder problems. She had trouble in her back before. Onset: Sudden Duration: Day(s): (Last night) Location: Reports: Back Quality: Reports: Sharp Severity: Severe Improves with: Reports: None Worsens with: Reports: Movement Context: Reports: Other (She was coughing when this started) Associated Symptoms: Reports: No Other Symptoms Right Lower Back Pain Score (Numeric/FACES): 10 - Related Data Allergies Allergy/AdvReac Type Severity Reaction Status Date / Time aripiprazole [From Abilify] Allergy Swollen Verified 09/08/17 12:05 Tongue Home Meds: Home Meds Cyclobenzaprine [Flexeril] 10 mg PO TID PRN #20 tab 09/08/17 [Rx] Hydrocodone/Acetaminophen [Hydrocodon-Acetaminophen 5-325] 1 - 2 each PO Q6HR PRN #20 tablet 09/08/17 [Rx] Past Medical History Genitourinary History: Reports: Other (See Below) Other Genitourinary History: Patient states she has a history of being unable to empty her bladder, she's had UTI's in the past [employer] History: Reports: Musculoskeletal History: Reports: Back Pain, Chronic Other Musculoskeletal History: BACK PAIN SINCE DELIVERY OF HER CHILD 2 YEARS AGO - Infectious Disease History Infectious Disease History: Reports: MRSA, Other (See Below) Other Infectious Disease History: 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 Unknown if she has been cleared. Rapid swab taken and sent to lab for testing. - Past Surgical History HEENT Surgical History: Reports: Tonsillectomy Musculoskeletal Surgical History: Reports: Other (See Below) Social & Family History - Family History Family Medical History: Noncontributory Oncologic: Reports: Skin - Tobacco Use Smoking Status *Q: Current Every Day Smoker Years of Tobacco use: 11 Packs/Tins Daily: 0.5 - Caffeine Use Caffeine Use: Reports: Soda - Recreational Drug Use Recreational Drug Use: No - Living Situation & Occupation Living situation: Reports: Occupation: Employed ED ROS GENERAL - Review of Systems Review Of Systems: See Below Constitutional: Reports: No Symptoms HEENT: Reports: No Symptoms Respiratory: Reports: No Symptoms Cardiovascular: Reports: No Symptoms Endocrine: Reports: No Symptoms GI/Abdominal: Reports: No Symptoms : Reports: No Symptoms Musculoskeletal: Reports: Back Pain (Left lower) ED EXAM,LOWER BACK PAIN/INJURY - Physical Exam Exam: See Below Exam Limited By: No Limitations General Appearance: Alert, No Apparent Distress Ears: Normal External Exam Nose: Normal Inspection Head: Atraumatic, Normocephalic Neck: Normal Inspection Respiratory/Chest: No Respiratory Distress, Lungs Clear, Normal Breath Sounds Cardiovascular: Regular Rate, Rhythm, No Edema, No Murmur GI/Abdominal: Soft, Non-Tender, No Organomegaly, No Mass Back Exam: Other (Pain upon palpation to the left lower back) Neurological: Alert, No Motor/Sensory Deficits, Oriented x 3 Course - Vital Signs Last Recorded V/S: Last Vital Signs Temp 97.3 F 09/08/17 12:03 Pulse 95 09/08/17 12:03 Resp 16 09/08/17 12:03 BP 117/74 09/08/17 12:03 Pulse Ox 100 09/08/17 12:03 Departure - Departure Time of Disposition: 13:00 Disposition: Home, Self-Care 01 Condition: Good Clinical Impression: Lumbar strain Qualifiers: Encounter type: initial encounter Qualified Code(s): S39.012A - Strain of muscle, fascia and tendon of lower back, initial encounter - Discharge Information Prescriptions: Hydrocodone/Acetaminophen [Hydrocodon-Acetaminophen 5-325] 1 - 2 each PO Q6HR PRN #20 tablet PRN Reason: Pain Cyclobenzaprine [Flexeril] 10 mg PO TID PRN #20 tab PRN Reason: Pain Referrals: PCP,None [Primary Care Provider] - Yeimi Lomas PA [Physician Analysis Specialist] - 1 Week Additional Instructions: Take the hydrococone and flexeril as needed for pain. Use ice for 15 minutes 3 times per day for 2 days on your back. Follow up with Yeimi Lomas if you are not better in 1 week. Please return if you are worse.
== END 2017-09-08 13:12 | disposition home or self-care (01) ==
LOC: JD.ED 11:59
DX: S39.012A Strain of muscle, fascia and tendon of lower back, initial encounter (principal); F17.210 Nicotine dependence, cigarettes, uncomplicated; Z88.8 Allergy status to other drugs, medicaments and biological substances; X58.XXXA Exposure to other specified factors, initial encounter
CPT/HCPCS: 99283

== ENCOUNTER 2021-05-28 04:35 | Emergency (ER) | payer MEDICAID ==
[2021-05-28 04:59] VITALS: BP 131/81; PULSE 82
[2021-05-28] MEDS ORDERED: Dexamethasone 4 MG Tab PO STA (05:05)
[2021-05-28] MEDS ORDERED: Potassium Chloride 20 MEQ Tab.ER PO ONE (05:05)
--- NOTE | 2021-05-28 05:23 | EDM.PDOC ---
ED HPI GENERAL MEDICAL PROBLEM - General Chief Complaint: General Stated Complaint: COVID+/HEART RACING Time Seen by Provider: 05/28/21 04:52 Source of Information: Reports: Patient History Limitations: Reports: No Limitations - History of Present Illness INITIAL COMMENTS - FREE TEXT/NARRATIVE: Ms. Cantrell is a pleasant 30-year-old woman who now presents the ED stating that she tested positive for the SARS-CoV-2 virus on 05/22/2021. She got tested because her boyfriend was positive, even though she was asymptomatic. Since then, she has experienced some body aches, but, for the most part, her symptoms have been minimal. She states that she woke around 03:00 this morning with a rapid heartbeat. She had no other symptoms, such as a fever, cough, or dyspnea. Since then, she states that her symptoms have improved, although she still feels like her heart is beating faster than normal. Here in the ED, the patient is found to be hemodynamically stable, afebrile, saturating 98% on room air. She appears to be somewhat anxious, and is a bit tearful. She is in no acute distress. Prior to 05/22/2021, the patient denies having a recent fever, chills, sore throat, ear pain, nasal or sinus congestion, cough, dyspnea, chest pain, palpitations, nausea, vomiting, constipation, diarrhea, abdominal pain, urinary symptoms, recent weight gain or weight loss, recent bloody bowel movements or black bowel movements, recent joint aches, headaches, or rashes. The patient's PCP is Maite Larson NP. She has not received a COVID vaccination, nor an influenza vaccination this season. - Related Data Allergies Allergy/AdvReac Type Severity Reaction Status Date / Time aripiprazole [From Abilify] Allergy Swollen Verified 05/28/21 04:59 Tongue Home Meds: Home Meds . [No Known Home Meds] 11/24/20 [History] Past Medical History Endocrine/Metabolic History: Reports: Obesity/BMI 30+ - Infectious Disease History Infectious Disease History: Reports: MRSA, Novel Coronavirus (dx'd 05/22/2021) - Past Surgical History HEENT Surgical History: Reports: Tonsillectomy Social & Family History - Tobacco Use Tobacco Use Status *Q: Current Every Day Tobacco User Years of Tobacco use: 17 Packs/Tins Daily: 0.5 Tobacco Use Comment: Started smoking 2003 - Caffeine Use Caffeine Use: Reports: Soda - Alcohol Use Alcohol Use History: Yes Alcohol Use Frequency: Socially - Recreational Drug Use Recreational Drug Use: No - Living Situation & Occupation Living situation: Reports: Single, with Family Occupation: Unemployed ED ROS GENERAL - Review of Systems Review Of Systems: Comprehensive ROS is negative, except as noted in HPI. ED EXAM, GENERAL - Physical Exam Exam: See Below Exam Limited By: No Limitations General Appearance: Alert, WD/WN, Anxious (somewhat tearful) Eye Exam: Bilateral Eye: EOMI, Normal Inspection Ears: Normal External Exam, Hearing Grossly Normal Nose: Normal Inspection Throat/Mouth: Normal Inspection, Normal Lips, Normal Voice, No Airway Compromise Head: Atraumatic, Normocephalic Neck: Normal Inspection, Full Range of Motion Respiratory/Chest: No Respiratory Distress, Lungs Clear, Normal Breath Sounds, No Accessory Muscle Use Cardiovascular: Normal Peripheral Pulses, Regular Rate, Rhythm, No Edema, No Gallop, No JVD, No Murmur, No Rub Peripheral Pulses: 3+: Radial (L), Radial (R) GI/Abdominal: Normal Bowel Sounds, Soft, Non-Tender, No Organomegaly, No Distention, No Abnormal Bruit, No Mass Back Exam: Normal Inspection, Full Range of Motion, NT Extremities: Normal Inspection, Normal Range of Motion, No Pedal Edema, Normal Capillary Refill Neurological: Alert, Oriented, Normal Cognition, No Motor/Sensory Deficits Psychiatric: Anxious, Tearful Skin Exam: Warm, Dry, Intact, Normal Color, No Rash Course - Vital Signs Last Recorded V/S: Last Vital Signs Temp 36.1 C 05/28/21 04:45 Pulse 82 05/28/21 04:45 Resp 18 05/28/21 04:45 BP 131/81 05/28/21 04:45 Pulse Ox 98 05/28/21 04:45 - Re-Assessments/Exams Free Text/Narrative Re-Assessment/Exam: 05/28/21 05:16 While the patient may feel tachycardia, her heart rate is actually within normal limits, and her physical exam is unremarkable. She appears to be quite anxious, and is even a bit tearful - I suspect that anxiety may have played a role in this morning's event. I am not recommending any tests at this time. The patient is in agreement. I will discharge her home. Departure - Departure Time of Disposition: 05:17 Disposition: Home, Self-Care 01 Condition: Good Clinical Impression: Rapid palpitations - Discharge Information *PRESCRIPTION DRUG MONITORING PROGRAM REVIEWED*: Not Applicable *COPY OF PRESCRIPTION DRUG MONITORING REPORT IN PATIENT NALLELY: Not Applicable Instructions: Palpitations, [id number] Referrals: Maite Larson NP [Primary Care Provider] - Forms: ED Department Discharge Additional Instructions: You were seen in the emergency room after waking up with a rapid heartbeat. On examination in the ER, your heart rate was at a normal rate, and your physical exam was unremarkable. No testing was recommended. As you are probably aware, it is imperative that you strictly isolate for 10 days from the time of your diagnosis = 06/01/2021, at which time you should get retested for the SARS-CoV-2 virus. If you are still positive, you need to continue to isolate until you test negative. If any other problems, please do not hesitate to return to the ER. Sepsis Event Note (ED) - Evaluation Sepsis Screening Result: No Definite Risk - Focused Exam Vital Signs: Vital Signs Temp Pulse Resp BP Pulse Ox 05/28/21 04:45 36.1 C 82 18 131/81 98
== END 2021-05-28 05:25 | disposition home or self-care (01) ==
LOC: JD.ED 04:35
DX: R00.2 Palpitations (principal); F17.210 Nicotine dependence, cigarettes, uncomplicated; E66.9 Obesity, unspecified; Z68.39 Body mass index [BMI] 39.0-39.9, adult; Z88.8 Allergy status to other drugs, medicaments and biological substances
CPT/HCPCS: 99283

== ENCOUNTER 2023-12-06 07:37 | Emergency (ER) | payer MEDICAID ==
[2023-12-06 07:47] VITALS: BP 151/78; PULSE 87
[2023-12-06] MEDS ORDERED: Lidocaine 1% 10 ML MDV INJECT ONE (07:59)
== END 2023-12-06 09:39 | disposition home or self-care (01) ==
LOC: JD.ED 07:37
DX: S61.012A Laceration without foreign body of left thumb without damage to nail, initial encounter (principal); Z86.16 Personal history of COVID-19; Z79.899 Other long term (current) drug therapy; Z88.8 Allergy status to other drugs, medicaments and biological substances; W26.8XXA Contact with other sharp object(s), not elsewhere classified, initial encounter; Y93.G1 Activity, food preparation and clean up
CPT/HCPCS: 12001; 99282

== ENCOUNTER 2024-02-16 11:42 | Emergency (ER) | payer MEDICAID ==
[2024-02-16] MEDS: Ondansetron 4 MG/2 ML SDV IVPUSH ONE (12:33)
[2024-02-16] MEDS: Sodium Chloride 0.9% 1,000 ML IV STA (12:33)
[2024-02-16] MEDS: diphenhydrAMINE 50 MG/ML SDV IVPUSH ONE (12:33)
[2024-02-16] MEDS: Acetaminophen 325 MG Tab PO ONE (12:33)
[2024-02-16] MEDS: Sodium Chloride 0.9% 10 ML Syringe FLUSH PRN (12:34)
[2024-02-16 12:51] LABS: BASOPHILS PERCENT AUTO 0.3 % (0.0-1.0); EOSINOPHILS PERCENT AUTO 0.2 % (0.0-6.0); HEMATOCRIT 37.1 % (37.0-47.0); HEMOGLOBIN 12.7 gm/dl (12.0-16.0); IMMATURE GRAN ABSOLUTE AUTO 0.06 K/mm3 (0.00-0.05); IMMATURE GRAN PERCENT AUTO 0.7 % (0.0-0.4); LYMPHOCYTES ABSOLUTE AUTO 0.5 K/mm3 (1.0-4.8); LYMPHOCYTES PERCENT AUTO 5.5 % (24.0-44.0); MEAN CORPUSCULAR HGB CONC 34.2 g/dl (32.0-36.0); MEAN CORPUSCULAR VOLUME 90.5 fl (83.0-99.0); MEAN PLATELET VOLUME 9.5 fl (9.4-12.3); MONOCYTES ABSOLUTE AUTO 0.6 K/mm3 (0.0-0.8); MONOCYTES PERCENT AUTO 6.8 % (0.0-8.0); NEUTROPHILS ABSOLUTE AUTO 7.7 K/mm3 (1.8-7.7); NEUTROPHILS PERCENT AUTO 86.5 % (41.0-71.0); PLATELET COUNT,PLT 191 K/mm3 (150-400); WHITE BLOOD CELL COUNT,WBC 8.92 K/mm3 (3.9-11.3)
[2024-02-16 13:24] LABS: ALBUMIN 3.3 g/dl (3.4-5.0); ANION GAP 16.4 (5-15); BILIRUBIN TOTAL 0.4 mg/dL (0.2-1.0); BUN/CREATININE RATIO 11.4 (14-18); C-REACTIVE PROTEIN 3.11 mg/dL (<0.30); CREATININE 0.7 mg/dL (0.55-1.02); EST CRCL DRUG DOSING (CG) 96.33 mL/min; POTASSIUM,K 3.4 mEq/L (3.5-5.1); PROTEIN TOTAL,TP 6.7 g/dl (6.4-8.2)
[2024-02-16 13:27] LABS: CORONAVIRUS COVID-19 NAA POSITIVE (NEGATIVE); INFLUENZA A NAA NEGATIVE (NEGATIVE); RESPIRATORY SYNCYTIAL VIR NAA NEGATIVE (NEGATIVE)
[2024-02-16 15:16] VITALS: BP 124/83; PULSE 88
== END 2024-02-16 14:10 | disposition home or self-care (01) ==
LOC: JD.ED 11:42
DX: O98.511 Other viral diseases complicating pregnancy, first trimester (principal); U07.1 COVID-19; Z79.899 Other long term (current) drug therapy; Z88.8 Allergy status to other drugs, medicaments and biological substances; Z3A.09 9 weeks gestation of pregnancy
CPT/HCPCS: 0241U; 36415; 80053; 85025; 86140; 96374; 96375; 99284; A9270; J1200; J2405; J3490; J7030

== ENCOUNTER 2024-09-09 23:50 | Inpatient (IN) | payer MEDICAID ==
[2024-09-10] MEDS ORDERED: Ondansetron 4 MG/2 ML SDV IVPUSH PRN (00:17)
[2024-09-10] MEDS ORDERED: Lidocaine 1% 50 ML MDV INJECT PRN (00:17)
[2024-09-10] MEDS ORDERED: Nalbuphine 10 MG/1 ML Vial IVPUSH PRN (00:17)
[2024-09-10 00:39] LABS: BASOPHILS PERCENT AUTO 0.2 % (0.0-1.0); EOSINOPHILS ABSOLUTE AUTO 0.1 K/mm3 (0.0-0.4); EOSINOPHILS PERCENT AUTO 0.4 % (0.0-6.0); HEMATOCRIT 34.2 % (37.0-47.0); HEMOGLOBIN 11.5 gm/dl (12.0-16.0); IMMATURE GRAN PERCENT AUTO 0.7 % (0.0-0.4); LYMPHOCYTES ABSOLUTE AUTO 2.8 K/mm3 (1.0-4.8); LYMPHOCYTES PERCENT AUTO 19.4 % (24.0-44.0); MEAN CORPUSCULAR HEMOGLOBIN 31.8 pg (28.0-32.0); MEAN CORPUSCULAR HGB CONC 33.6 g/dl (32.0-36.0); MEAN CORPUSCULAR VOLUME 94.5 fl (83.0-99.0); MONOCYTES ABSOLUTE AUTO 0.8 K/mm3 (0.0-0.8); MONOCYTES PERCENT AUTO 5.3 % (0.0-8.0); NEUTROPHILS ABSOLUTE AUTO 10.5 K/mm3 (1.8-7.7); PLATELET COUNT,PLT 209 K/mm3 (150-400); RED BLOOD CELL COUNT 3.62 M/mm3 (4.10-5.30); WHITE BLOOD CELL COUNT,WBC 14.23 K/mm3 (3.9-11.3)
[2024-09-10] MEDS: Oxytocin/0.9 % Sodium Chloride 30 UNIT/500 ML BAG IV SCH ×2 (01:13→09:24)
[2024-09-10] MEDS ORDERED: 50% Dextrose in Water 50 ML Syringe IVPUSH PRN (01:27)
[2024-09-10] MEDS ORDERED: Glucagon,Human Recombinant 1 MG Vial IM PRN (01:27)
[2024-09-10] MEDS: Lactated Ringers 1,000 ML IV SCH (01:47)
[2024-09-10] MEDS: Dextrose 5% in Water 1,000 ML IV SCH (01:47)
[2024-09-10] MEDS: Insulin Regular in 0.9 % NACL 100 ML IV SCH (01:48)
[2024-09-10] MEDS ORDERED: diphenhydrAMINE 50 MG/ML SDV IVPUSH PRN (02:24)
[2024-09-10] MEDS ORDERED: ePHEDrine 50 MG/ML SDV IVPUSH PRN (02:24)
[2024-09-10] MEDS: Bupivacaine/fentaNYL/NS 100 ML Bag EPIDUR PRN (07:15)
[2024-09-10] MEDS: Misoprostol 200 MCG Tab BUCCAL STA ×2 (09:11→09:13)
[2024-09-10] MEDS: Misoprostol 200 MCG Tab ONE (09:19)
[2024-09-10] MEDS ORDERED: Oxytocin/0.9 % Sodium Chloride 30 UNIT/500 ML BAG IV SCH (09:48)
[2024-09-10] MEDS ORDERED: Hydrocortisone Acetate 25 MG Supp RECTAL PRN (09:48)
[2024-09-10] MEDS ORDERED: Magnesium Hydroxide 400 MG/5 ML Susp 30 ML Cup PO PRN (09:48)
[2024-09-10] MEDS: Benzocaine/Menthol 20%-0.5% Spray 78 GM Cannister TOP PRN (10:03)
[2024-09-10] MEDS: Witch Hazel Medicated Pads 40/Jar TOP PRN (10:03)
[2024-09-10 10:41] LABS: HEMATOCRIT 35.6 % (37.0-47.0); HEMOGLOBIN 11.8 gm/dl (12.0-16.0); MEAN CORPUSCULAR HEMOGLOBIN 31.5 pg (28.0-32.0); MEAN CORPUSCULAR HGB CONC 33.1 g/dl (32.0-36.0); MEAN CORPUSCULAR VOLUME 94.9 fl (83.0-99.0); MEAN PLATELET VOLUME 11.1 fl (9.4-12.3); PLATELET COUNT,PLT 206 K/mm3 (150-400); RED BLOOD CELL COUNT 3.75 M/mm3 (4.10-5.30); WHITE BLOOD CELL COUNT,WBC 18.79 K/mm3 (3.9-11.3)
[2024-09-10 11:12] LABS: INR 0.93; PROTHROMBIN TIME 9.9 SECONDS (9.7-12.0)
[2024-09-10] MEDS: Prenatal Multivitamin with Calcium/Folic Acid/Iron Tab PO SCH (11:12)
[2024-09-10] MEDS: Docusate Sodium 100 MG Cap PO PRN (11:12)
[2024-09-10] MEDS: Ibuprofen 600 MG Tab PO SCH (11:12)
[2024-09-10] MEDS: Acetaminophen 325 MG Tab PO PRN (13:36)
[2024-09-10] MEDS: Nicotine 14 MG/24 Hr Patch TRDERM SCH (14:06)
[2024-09-11] MEDS: Ibuprofen 600 MG Tab PO SCH (06:00)
[2024-09-11 13:50] VITALS: BP 137/70; PULSE 88
== END 2024-09-11 13:50 | disposition home or self-care (01) | DRG 807 ==
LOC: JD.OBCHECK 23:50 → JD.OB 23:55 → JD.OBCHECK 09-10 02:14 → JD.OB 09-10 02:17 → OBSVTOIN 09-10 07:47 → JD.OB 09-10 07:48
PROVIDERS: ADMIT Obstetrics & Gynecology; ATTEND Obstetrics & Gynecology
PROC: 10E0XZZ Delivery of Products of Conception, External Approach (ICD-10-PCS; principal; 2024-09-10)
PROC: 3E0R3BZ Introduction of Anesthetic Agent into Spinal Canal, Percutaneous Approach (ICD-10-PCS; principal; 2024-09-10)
DX: O24.424 Gestational diabetes mellitus in childbirth, insulin controlled (principal); Z37.0 Single live birth; O99.344 Other mental disorders complicating childbirth; O99.214 Obesity complicating childbirth; M54.9 Dorsalgia, unspecified; G89.29 Other chronic pain; F39 Unspecified mood [affective] disorder; Z90.49 Acquired absence of other specified parts of digestive tract; Z79.899 Other long term (current) drug therapy; Z98.890 Other specified postprocedural states; Z3A.38 38 weeks gestation of pregnancy; Z98.1 Arthrodesis status; Z86.16 Personal history of COVID-19; Z88.8 Allergy status to other drugs, medicaments and biological substances; Z72.0 Tobacco use
CPT/HCPCS: 01967; 36415; 51702; 59025; 59409; 82947; 85025; 85027; 85384; 85610; 86592; 86850; 86900; 86901; A9270-GY; J3490; J7060; J7120; J7999